=== PATIENT | female | born 1980 | race Caucasian/White ===

== ENCOUNTER 2023-08-10 08:32 | Day surgery (SDC) | payer MEDICARE, MEDICAID ==
[2023-08-03 17:08] LABS: BASOPHILS % (AUTO) 0.7 % (0-1); EOSINOPHILS # (AUTO) 0.1 X10'3 (0-0.9); EOSINOPHILS % (AUTO) 2.7 % (0-6); LYMPHOCYTES # (AUTO) 1.4 X10'3 (1.1-4.8); LYMPHOCYTES % (AUTO) 30.7 % (21-51); MEAN CORPUSCULAR HEMOGLOBIN 26.2 PG (27.0-31.0); MEAN CORPUSCULAR HGB CONC 32.3 g/dL (33.0-36.5); MEAN PLATELET VOLUME 8.5 FL (7.4-10.4); MONOCYTES # (AUTO) 0.3 X10'3 (0-0.9); MONOCYTES % (AUTO) 5.9 % (2-12); NEUTROPHILS # (AUTO) 2.8 X10'3 (1.8-7.7); PRE OP HEMATOCRIT 29.4 % (35.0-45.0); PRE OP PLATELET COUNT 248 X10'3 (140-440); PRE OP WHITE BLOOD COUNT 4.6 10'3 (4.8-10.8); RED BLOOD COUNT 3.63 X10'6 (4.20-5.60); RED CELL DISTRIBUTION WIDTH 18.2 % (11.5-14.5)
[2023-08-03 17:10] LABS: BILIRUBIN,URINE NEGATIVE (Neg); CLARITY,URINE CLOUDY (Clear); COLOR,URINE YELLOW (Yellow); GLUCOSE, URINE NEGATIVE (Neg); KETONES,URINE NEGATIVE (Neg); LEUKOCYTE ESTERASE ,URINE NEGATIVE (Neg); NITRITES, URINE NEGATIVE (Neg); OCCULT BLOOD,URINE LARGE (Neg); PH,URINE 6.5 (4.8-8.0); PROTEIN,URINE NEGATIVE (Neg); UROBILINOGEN,URINE 0.2 E.U/dL (0.2-1.0)
[2023-08-03 17:11] LABS: UA COLLECTION TYPE CLN CATCH MIDSTREAM
[2023-08-03 17:21] LABS: PRE OP HEMOGLOBIN 9.5 g/dL (12.0-16.0)
[2023-08-03 17:23] LABS: ALBUMIN 3.8 G/DL (3.4-5.0); ALBUMIN/GLOBULIN RATIO 1.1 (1.1-1.5); ALKALINE PHOSPHATASE 66 IU/L (46-116); BLOOD UREA NITROGEN 16 MG/DL (7-18); BUN/CREATININE RATIO 29.6 (10.0-20.0); CALCIUM 9.3 MG/DL (8.5-10.1); CHLORIDE 106 MMOL/L (99-107); CREATININE 0.54 MG/DL (0.40-0.90); PRE OP ALT 25 U/L (30-65); PRE OP ANION GAP 6 (8-16); PRE OP AST 18 U/L (10-37); PRE OP BILIRUB, TOTAL 0.5 MG/DL (0.0-1.0); PRE OP GLUCOSE 91 MG/DL (70-104); PRE OP POTASSIUM 3.4 MMOL/L (3.4-5.1); PRE OP SODIUM 140 MMOL/L (135-145); TOTAL CARBON DIOXIDE 28.1 MMOL/L (24-32); TOTAL PROTEIN 7.4 G/DL (6.4-8.2); eGFR > 90 ML/MIN
[2023-08-03 17:25] LABS: HCG SERUM QL NEGATIVE
[2023-08-03 17:39] LABS: BACTERIA,URINE 2+ /HPF (Neg); MUCUS STRANDS FEW /LPF (Neg); SQUAMOUS EPITHELIAL CELL,UR MANY /LPF (FEW)
[2023-08-03 17:40] LABS: RBC,URINE 0-2 /HPF (0-2); WBC,URINE 0-4 /HPF (0-4)
[2023-08-10] VITALS (19 sets, daily range): BP systolic 111–150; BP diastolic 59–94; PULSE 75–99; RESP 11–18; TEMP 97.1–99.1; O2SAT 94–100
[~2023-08-10] VITALS: Ht 172.7 cm; Wt 91.8 kg
[~2023-08-10 08:32] MED LIST: CHOL100017 PO; CYCL-394 PO; GENTAMICIN IV ONE; IBUP-1984 PO; NORMAL SALINE IV ONE; clindamycin-Cleocin 900mg/D5W 50 ML IV ONE; famotidine 20mg tablet PO ONE; ringers solution, lacted 1,000 ML IV SCH
[2023-08-10] MEDS ORDERED: sevoflurane 250ml liquid IH ONE (11:32)
[2023-08-10] MEDS ORDERED: fentaNYL/PF 50MCG/1 ML 2ML syringe ONE (11:37)
[2023-08-10] MEDS ORDERED: midazolam 1 mg/ML 2ml injection ONE (11:40)
[2023-08-10] MEDS ORDERED: propofol inj 20 ML IV ONE (11:52)
[2023-08-10] MEDS ORDERED: rocuronium 10mg/ml inj IV ONE ×2 (11:52→13:31)
[2023-08-10] MEDS ORDERED: dexamethasone sod phosphate 4mg/ml inj. ONE (11:53)
[2023-08-10] MEDS ORDERED: BUPIVAcaine HCl 0.25%/EPInephrine 1:200,000 inj. 10 ML VIAL ONE (12:12)
[2023-08-10] MEDS ORDERED: ketorolac trometh. 30mg/ml inj. IV ONE (12:20)
[2023-08-10] MEDS ORDERED: HYDROmorphone/PF 0.2 MG/ML SYRINGE IV PRN ×2 (12:20)
[2023-08-10] MEDS ORDERED: ringers solution, lacted 1,000 ML IV SCH (12:20)
[2023-08-10] MEDS ORDERED: acetaminophen 1,000mg/100ml IV 100 ML IV PRN (12:20)
[2023-08-10] MEDS ORDERED: ondansetron/PF 4mg/2ml inj IV PRN ×2 (12:20→14:05)
[2023-08-10] MEDS ORDERED: meperidine/PF 25mg/ml syringe IV PRN ×3 (12:20)
[2023-08-10] MEDS ORDERED: ondansetron/PF 4mg/2ml inj ONE (13:31)
[2023-08-10] MEDS ORDERED: acetaminophen 1,000mg/100ml IV 100 ML IV ONE (13:34)
[2023-08-10] MEDS ORDERED: sugammadex 200mg/2ml injection IV ONE (13:50)
[2023-08-10] MEDS ORDERED: normal saline 500ml IV soln 500 ML IV PRN (14:05)
[2023-08-10] MEDS ORDERED: LORazepam 2 mg/ml vial IV PRN (14:05)
[2023-08-10] MEDS ORDERED: temazepam 15mg capsule PO PRN (14:05)
[2023-08-10] MEDS ORDERED: magnesium hydroxide 30ml (MOM) UD suspension PO PRN (14:05)
[2023-08-10] MEDS: ringers solution, lacted 1,000 ML IV SCH ×2 (14:05→22:05)
[2023-08-10] MEDS ORDERED: metoclopramide 5 mg/ml inj IV PRN (14:05)
--- NOTE | 2023-08-10 14:09 | NUR ---
Received from OR via BED, accompanied by Anesthesiologist and report given by MARIO Anesthesiologist. PATIENT WAKING UP, NO S/S OF PAIN, V/S WNL, SCD ON, ABDOMEN LAP SITE CLEAN W/ NO S/S OF COMPLICATIONS. PT HAS 20G PIV TO LEFT AC WITH LR INFUSING @ 100ML/HR ORDERED. PT HAS LOWER ABDOMEN INCISION SITE THAT IS C/D/I, MAURY PAD IS C/D/I. RAYMOND CATHETER DRAINING CLEAR URINE OUTPUT. PT RESTING COMFORTABLY. WILL CONTINUE TO ASSESS. Addendum: 08/10/23 at 1428 by William Johnson RN Amended: Links added.
--- NOTE | 2023-08-10 14:59 | NUR ---
PATIENT HAS MET ALL CRITERIA FOR TRANSFER TO [facility]THO FLOOR. VSS. DRESSINGS INTACT. BED LOW, CALL LIGHT PRESENT AND 2 RAILS UP. RN PRESENT TO ACCEPT CARE OF PATIENT AND REPORT HAS BEEN CALLED. ALL QUESTIONS ANSWERED TO ACCEPTING RN. Addendum: 08/10/23 at 1505 by William Johnson RN Amended: Links added.
[2023-08-10] MEDS: ketorolac trometh. 30mg/ml inj. IV PRN ×2 (15:18→23:13)
--- NOTE | 2023-08-10 18:33 | NUR ---
I have received report from July TRINH and assumed care of patient
[2023-08-10] MEDS: HYDROmorphone 2mg tablet PO PRN (19:25)
[2023-08-10] MEDS: docusate sod 100mg capsule PO SCH (19:25)
[2023-08-11 02:00] VITALS: BP 105/56; PULSE 72; RESP 17; TEMP 98; O2SAT 97
[2023-08-11] MEDS: HYDROmorphone 2mg tablet PO PRN ×2 (02:09→08:08)
[2023-08-11] MEDS: ketorolac trometh. 30mg/ml inj. IV PRN ×2 (05:26→11:17)
--- NOTE | 2023-08-11 05:55 | NUR ---
I agree with QUANTITATIVE ASSOCIATE physical assessment
[2023-08-11] MEDS: ringers solution, lacted 1,000 ML IV SCH (06:05)
[2023-08-11 06:11] LABS: BASOPHILS % (AUTO) 0.4 % (0-1); EOSINOPHILS % (AUTO) 0.1 % (0-6); HEMATOCRIT 23.8 % (35.0-45.0); HEMOGLOBIN 7.7 g/dl (12.0-16.0); LYMPHOCYTES # (AUTO) 1.1 X10'3 (1.1-4.8); LYMPHOCYTES % (AUTO) 14.9 % (21-51); MEAN CORPUSCULAR HEMOGLOBIN 26.2 PG (27.0-31.0); MEAN CORPUSCULAR HGB CONC 32.4 g/dL (33.0-36.5); MEAN PLATELET VOLUME 8.5 FL (7.4-10.4); MONOCYTES # (AUTO) 0.5 X10'3 (0-0.9); MONOCYTES % (AUTO) 6.8 % (2-12); NEUTROPHILS # (AUTO) 5.5 X10'3 (1.8-7.7); NEUTROPHILS % (AUTO) 77.8 % (42-75); PLATELET COUNT 191 X10'3 (140-440); RED BLOOD COUNT 2.94 X10'6 (4.20-5.60); RED CELL DISTRIBUTION WIDTH 17.6 % (11.5-14.5)
--- NOTE | 2023-08-11 06:15 | NUR ---
Report to July TRINH
[2023-08-11 06:26] LABS: ALBUMIN 2.8 G/DL (3.4-5.0); ANION GAP 7 (8-16); BLOOD UREA NITROGEN 14 MG/DL (7-18); BUN/CREATININE RATIO 27.5 (10.0-20.0); CALCIUM 8.7 MG/DL (8.5-10.1); CHLORIDE 106 MMOL/L (99-107); CREATININE 0.51 MG/DL (0.40-0.90); GLUCOSE 100 MG/DL (70-104); POTASSIUM 3.8 MMOL/L (3.5-5.1); SODIUM 138 MMOL/L (135-145); TOTAL CARBON DIOXIDE 24.6 MMOL/L (24-32); eCRCL 148 ML/MIN; eGFR > 90 ML/MIN
--- NOTE | 2023-08-11 06:54 | NUR ---
Patient in room [facility]TH[facility] 4015. I have received report from Doc RAPHAEL and had the opportunity to ask questions and assume patient care.
[2023-08-11 06:55] VITALS: BP 102/53; PULSE 86; RESP 16; TEMP 98.1; O2SAT 98
[2023-08-11 08:00] VITALS: RESP 16; O2SAT 98
[2023-08-11] MEDS: docusate sod 100mg capsule PO SCH (08:08)
[2023-08-11 10:00] VITALS: BP 124/69; PULSE 87; RESP 15; TEMP 98.1; O2SAT 99
[2023-08-11 11:17] VITALS: RESP 14
== END 2023-08-11 13:10 | disposition home or self-care (01) ==
LOC: PAS 08:32 → EDSTATUS 10:15 → ORTHO 4S 16:15 → PAS 08-11 13:10
PROVIDERS: ATTEND Obstetrics & Gynecology Obstetrics
DX: N83.202 Unspecified ovarian cyst, left side (principal); Z79.1 Long term (current) use of non-steroidal anti-inflammatories (NSAID); Z79.891 Long term (current) use of opiate analgesic; Z79.899 Other long term (current) drug therapy; Z90.49 Acquired absence of other specified parts of digestive tract; Z98.890 Other specified postprocedural states; Z88.0 Allergy status to penicillin; Z88.5 Allergy status to narcotic agent; Z88.8 Allergy status to other drugs, medicaments and biological substances
CPT/HCPCS: 36415; 58720; 71046; 80048; 80053; 81001; 82948; 84703; 85025; 86885; 86900; 86901; 93005; J0131; J1100; J1170; J1580; J1885; J2175; J2250; J2405; J2704; J3010; J3490; J7030; J7120; Z7506; Z7508; Z7512; A4615; A4618; A7000; C1758; G0378

== ENCOUNTER 2024-08-06 02:37 | Emergency (ER) | payer MEDICARE, MEDICAID ==
[~2024-08-06] VITALS: Ht 160 cm; Wt 91.4 kg
[~2024-08-06 02:37] MED LIST changes: -GENTAMICIN IV ONE; -NORMAL SALINE IV ONE; -clindamycin-Cleocin 900mg/D5W 50 ML IV ONE; -famotidine 20mg tablet PO ONE; -ringers solution, lacted 1,000 ML IV SCH
[2024-08-06 03:55] LABS: BILIRUBIN,URINE NEGATIVE (Neg); CLARITY,URINE CLEAR (Clear); COLOR,URINE STRAW (Yellow); GLUCOSE, URINE NEGATIVE (Neg); KETONES,URINE NEGATIVE (Neg); LEUKOCYTE ESTERASE ,URINE NEGATIVE (Neg); NITRITES, URINE NEGATIVE (Neg); OCCULT BLOOD,URINE NEGATIVE (Neg); PROTEIN,URINE NEGATIVE (Neg); UROBILINOGEN,URINE 0.2 E.U/dL (0.2-1.0)
[2024-08-06 03:56] LABS: URINE HCG NEGATIVE (NEG)
[2024-08-06 03:57] LABS: UA COLLECTION TYPE CLN CATCH MIDSTREAM
[2024-08-06] MEDS: normal saline 1000ML IV soln IVB ONE (04:05)
[2024-08-06 04:22] LABS: BASOPHILS # (AUTO) 0.1 X10'3 (0-0.2); BASOPHILS % (AUTO) 0.8 % (0-1); EOSINOPHILS # (AUTO) 0.2 X10'3 (0-0.9); EOSINOPHILS % (AUTO) 2.6 % (0-6); HEMATOCRIT 39.5 % (35.0-45.0); HEMOGLOBIN 13.2 g/dl (12.0-16.0); LYMPHOCYTES # (AUTO) 1.7 X10'3 (1.1-4.8); LYMPHOCYTES % (AUTO) 18.8 % (21-51); MEAN CORPUSCULAR HEMOGLOBIN 30.2 PG (27.0-31.0); MEAN CORPUSCULAR HGB CONC 33.5 g/dL (33.0-36.5); MEAN CORPUSCULAR VOLUME 90.2 FL (78-98); MEAN PLATELET VOLUME 8.8 FL (7.4-10.4); MONOCYTES # (AUTO) 0.3 X10'3 (0-0.9); MONOCYTES % (AUTO) 3.9 % (2-12); NEUTROPHILS # (AUTO) 6.6 X10'3 (1.8-7.7); NEUTROPHILS % (AUTO) 73.9 % (42-75); PLATELET COUNT 232 X10'3 (140-440); RED BLOOD COUNT 4.38 X10'6 (4.20-5.60); RED CELL DISTRIBUTION WIDTH 14.9 % (11.5-14.5)
[2024-08-06 04:33] LABS: ALANINE AMINOTRANSFERASE 37 U/L (12-78); ALBUMIN 4.1 G/DL (3.4-5.0); ALBUMIN/GLOBULIN RATIO 1.2 (1.1-1.5); ALKALINE PHOSPHATASE 80 IU/L (46-116); ANION GAP 8 (8-16); ASPARTATE AMINO TRANSFERASE 23 U/L (10-37); BILIRUBIN,TOTAL 0.3 MG/DL (0.1-1.0); BLOOD UREA NITROGEN 14 MG/DL (7-18); BUN/CREATININE RATIO 19.7 (10.0-20.0); CALCIUM 9.4 MG/DL (8.5-10.1); CHLORIDE 108 MMOL/L (99-107); CREATININE 0.71 MG/DL (0.40-0.90); GLUCOSE 107 MG/DL (70-104); POTASSIUM 3.5 MMOL/L (3.5-5.1); SODIUM 141 MMOL/L (135-145); TOTAL CARBON DIOXIDE 25.2 MMOL/L (24-32); TOTAL PROTEIN 7.5 G/DL (6.4-8.2); eCRCL 86 ML/MIN; eGFR > 90 ML/MIN
[2024-08-06 04:35] LABS: LIPASE 36 U/L (16-77)
[2024-08-06] MEDS: ondansetron/PF 4mg/2ml inj IV ONE (05:17)
[2024-08-06] MEDS ORDERED: LOPE2CAP PO (05:33)
[2024-08-06] MEDS ORDERED: ONDA-245 PO (05:33)
[2024-08-06] MEDS: loperamide 2mg capsule PO ONE (05:34)
[2024-08-06 05:57] VITALS: BP 103/61; PULSE 67; RESP 16; TEMP 98.4; O2SAT 94
== END 2024-08-06 05:59 | disposition home or self-care (01) ==
LOC: ER 02:39
DX: K52.9 Noninfective gastroenteritis and colitis, unspecified (principal); Z88.0 Allergy status to penicillin; Z88.5 Allergy status to narcotic agent; Z88.6 Allergy status to analgesic agent; Z79.899 Other long term (current) drug therapy
CPT/HCPCS: 36415; 80053; 81003; 81025; 83690; 84484; 85025; 93005; 96361; 96374; 99284; J2405; J7030

== ENCOUNTER 2024-08-30 18:02 | Emergency (ER) | payer MEDICARE, MEDICAID ==
[~2024-08-30] VITALS: Ht 175.3 cm; Wt 93.3 kg
[~2024-08-30 18:02] MED LIST changes: +LOPE2CAP PO; +ONDA-245 PO
[2024-08-30 20:49] VITALS: BP_DIAS 73; RESP 14; O2SAT 100
[2024-08-30 20:56] LABS: BASOPHILS # (AUTO) 0.1 X10'3 (0-0.2); BASOPHILS % (AUTO) 0.9 % (0-1); EOSINOPHILS # (AUTO) 0.5 X10'3 (0-0.9); EOSINOPHILS % (AUTO) 4.6 % (0-6); HEMATOCRIT 42.5 % (35.0-45.0); HEMOGLOBIN 14.4 g/dl (12.0-16.0); LYMPHOCYTES # (AUTO) 3.3 X10'3 (1.1-4.8); LYMPHOCYTES % (AUTO) 29.6 % (21-51); MEAN CORPUSCULAR HEMOGLOBIN 30.8 PG (27.0-31.0); MEAN CORPUSCULAR HGB CONC 33.8 g/dL (33.0-36.5); MEAN CORPUSCULAR VOLUME 91.2 FL (78-98); MEAN PLATELET VOLUME 8.5 FL (7.4-10.4); MONOCYTES # (AUTO) 0.5 X10'3 (0-0.9); MONOCYTES % (AUTO) 4.9 % (2-12); NEUTROPHILS # (AUTO) 6.6 X10'3 (1.8-7.7); PLATELET COUNT 280 X10'3 (140-440); RED BLOOD COUNT 4.66 X10'6 (4.20-5.60); RED CELL DISTRIBUTION WIDTH 14.5 % (11.5-14.5)
[2024-08-30 21:10] LABS: ALANINE AMINOTRANSFERASE 20 U/L (12-78); ALBUMIN 4.7 G/DL (3.4-5.0); ALBUMIN/GLOBULIN RATIO 1.4 (1.1-1.5); ALKALINE PHOSPHATASE 83 IU/L (46-116); ANION GAP 8 (8-16); ASPARTATE AMINO TRANSFERASE 14 U/L (10-37); BILIRUBIN,TOTAL 0.6 MG/DL (0.1-1.0); BLOOD UREA NITROGEN 18 MG/DL (7-18); BUN/CREATININE RATIO 22.2 (10.0-20.0); CALCIUM 9.6 MG/DL (8.5-10.1); CHLORIDE 105 MMOL/L (99-107); CREATININE 0.81 MG/DL (0.40-0.90); GLUCOSE 97 MG/DL (70-104); POTASSIUM 3.3 MMOL/L (3.5-5.1); SODIUM 140 MMOL/L (135-145); TOTAL CARBON DIOXIDE 26.6 MMOL/L (24-32); eCRCL 96 ML/MIN; eGFR 78 ML/MIN
[2024-08-30 21:20] LABS: FREE T4 (FREE THYROXINE) 1.09 NG/DL (0.73-1.40); THYROID STIMULATING HORMONE 0.12 ulU/ml (0.34-4.50)
[2024-08-30 21:21] VITALS: BP_SYST 153; PULSE 65
[2024-08-30] MEDS: atenolol 25mg tablet PO ONE (21:21)
[2024-08-30] MEDS ORDERED: ATEN-27 PO (21:35)
[2024-08-30 21:37] VITALS: TEMP 98
== END 2024-08-30 21:47 | disposition home or self-care (01) ==
LOC: ER 18:02
DX: I10 Essential (primary) hypertension (principal); F41.9 Anxiety disorder, unspecified; E05.90 Thyrotoxicosis, unspecified without thyrotoxic crisis or storm; Z76.0 Encounter for issue of repeat prescription; Z88.0 Allergy status to penicillin; Z88.6 Allergy status to analgesic agent; Z79.899 Other long term (current) drug therapy
CPT/HCPCS: 36415; 80053; 84439; 84443; 85025; 99283